=== PATIENT | female | born 1990 | race Asian ===

== ENCOUNTER 2019-08-31 16:40 | Emergency (ER) | payer MEDICAID ==
[~2019-08-31] VITALS: Ht 170.2 cm; Wt 68.0 kg
--- NOTE | 2019-08-31 17:33 | NUR ---
PATIENT WAS SEEN BY . XRAY DONE. DC, RX AND F/U INSTRUCTIONS GIVEN AND EXPLAINED TO PATIENT WHO STATES SHE UNDERSTANDS ALL INSTRUCTIONS.
== END 2019-08-31 17:34 | disposition home or self-care (01) ==
LOC: ER 16:40
DX: J06.9 Acute upper respiratory infection, unspecified (principal); J45.909 Unspecified asthma, uncomplicated
CPT/HCPCS: 71101; A4663

== ENCOUNTER 2019-10-26 15:44 | Emergency (ER) | payer SELFPAY ==
[~2019-10-26] VITALS: Ht 170.2 cm; Wt 66.7 kg
--- NOTE | 2019-10-26 15:49 | NUR ---
PT IS IN ROOM #1B. DR MERINO EVALUATED THE PT.
[2019-10-26] MEDS ORDERED: OSELTAMIVIR PHOSPHATE 75 MG CAPSULE ONE (17:08)
[2019-10-26 17:11] VITALS: BP 132/88
--- NOTE | 2019-10-26 17:11 | NUR ---
PT WAS D/C'd TO HOME. D/C INSTRUCTIONS GIVEN TO THE PT.
[2019-10-26] MEDS ORDERED: OSELTAMIVIR PHOSPHATE 75 MG CAPSULE PO ONE (17:15)
== END 2019-10-26 17:22 | disposition home or self-care (01) ==
LOC: ER 15:46
DX: J10.1 Influenza due to other identified influenza virus with other respiratory manifestations (principal); J45.909 Unspecified asthma, uncomplicated; G43.909 Migraine, unspecified, not intractable, without status migrainosus; Z60.2 Problems related to living alone
CPT/HCPCS: 36415; 86403; 87070; 87400; A4663

== ENCOUNTER 2021-05-07 21:27 | Emergency (ER) | payer MEDICAID, OTHER ==
[~2021-05-07] VITALS: Ht 167.6 cm; Wt 68.0 kg
--- NOTE | 2021-05-07 22:00 | NUR ---
Dr Mancia into eval patient.
--- NOTE | 2021-05-07 22:20 | NUR ---
Patient discharged to home in stable condition. Written and verbal after care instructions given. Patient verbalizes understanding of instructions. Stressed follow up or return to ER for worsening s/s.
[2021-05-07 22:56] VITALS: BP 128/80
== END 2021-05-07 22:30 | disposition home or self-care (01) ==
LOC: ER 21:39
DX: R53.1 Weakness (principal); G62.9 Polyneuropathy, unspecified; M77.02 Medial epicondylitis, left elbow; M77.01 Medial epicondylitis, right elbow; F12.20 Cannabis dependence, uncomplicated; F17.290 Nicotine dependence, other tobacco product, uncomplicated
CPT/HCPCS: A4663